=== PATIENT | male | born 1960 | race African-American/Black ===

== ENCOUNTER 2017-10-28 12:02 | Emergency (ER) | payer BC ==
[2017-10-28 12:30] LABS: #Eosinphils 0.1 thou/uL (0.0-0.7); #Lymphocytes 2.2 thou/uL (1.20-3.40); #Monocytes 0.7 thou/uL (0.11-0.59); #Neutrophils 6.5 thou/uL (1.40-6.50); %Basophils 0.2 % (0.0-1.0); %Eosinophils 0.7 % (0.0-10.0); %Lymphocytes 23.5 % (21.0-51.0); %Monocytes 7.2 % (0.0-10.0); %Neutrophils 68.5 % (42.0-75.0); Mean Corpuscular Hemoglobin 27.4 pg (27.0-31.0); Mean Corpuscular Volume 83.2 fl (80.0-94.0); Mean Platelet Volume 5.9 fL (7.4-10.4); Platelet Count 220 thou/uL (130-400); RBC Distribution Width 13.6 % (11.5-14.5); Red Blood Cell (RBC) Count 5.46 mill/uL (4.70-6.10); White Blood Cell (WBC) Count 9.5 thou/uL (4.8-10.8)
[2017-10-28 12:52] LABS: ALT (SGPT) 22 U/L (8-55); AST (SGOT) 24 U/L (5-34); Alkaline Phosphatase 113 U/L (40-150); Anion Gap 13 mmol/L (10-20); BUN (Urea Nitrogen) 23 mg/dL (8.4-25.7); Bilirubin, Total 1.1 mg/dL (0.2-1.2); CK (CPK) 293 U/L (30-200); Calc. Creatinine Clearance 0 mL/min (70-130); Calcium 10.1 mg/dL (7.8-10.44); Carbon Dioxide 28 mmol/L (22-29); Chloride 102 mmol/L (98-107); Estimated GFR-MDRD 45; Globulin 2.9 g/dL (2.4-3.5); Glucose 155 mg/dL (70-105); Potassium 3.1 mmol/L (3.5-5.1); Protein, Total 6.9 g/dL (6.0-8.3); Sodium 140 mmol/L (136-145)
[2017-10-28 12:57] LABS: CKMB 1.1 ng/mL (0-6.6); Troponin I Less than 0.010 ng/mL (< 0.028)
[2017-10-28 14:19] LABS: Bilirubin Negative (Negative); Blood, Urine Moderate (Negative); Clarity CLEAR (Clear); Glucose, Urine (Dipstick) Negative (Negative); Leukocyte Negative (Negative); Nitrite Negative (Negative); Protein, Urine (Dipstick) Trace mg/dL (Neg-Trace); Specific Gravity, Urine 1.013 (1.002-1.036)
[2017-10-28 14:22] LABS: Bacteria/HPF None Seen HPF (None Seen); Hyaline Casts/LPF 0-3 HYALINE CAST LPF (0-3 Hyaline); Pathc Cast-AUWi Flag 0.43 (0-2.49); Squamous Epithelial 0-3 HPF (0-3); WBC/HPF 0-3 HPF (0-3)
[2017-10-28 14:31] LABS: Amphetamine Not Detected (NotDetected); Barbiturates Screen Not Detected (NotDetected); Benzodiazepine Screen Not Detected (NotDetected); Cocaine Metabolite Screen Not Detected (NotDetected); Medtox Control Line Valid? VALID (VALID); Medtox Reader # READER 4; Methadone Not Detected (NotDetected); Methamphetamine Not Detected (NotDetected); Opiate Screen Not Detected (NotDetected); Oxycodone Screen Not Detected (NotDetected); Phencyclidine (PCP) Not Detected (NotDetected); THC/Cannabinoid Screen Not Detected (NotDetected); Tricyclic Screen Not Detected (NotDetected)
== END 2017-10-28 16:16 | disposition home or self-care (01) ==
LOC: ERS 12:02
DX: T67.5XXA Heat exhaustion, unspecified, initial encounter (principal); E86.0 Dehydration; I10 Essential (primary) hypertension; F17.210 Nicotine dependence, cigarettes, uncomplicated; Z79.899 Other long term (current) drug therapy
CPT/HCPCS: 36415; 80053; 80306; 81003; 81015; 82550; 82553; 83880; 84484; 85025; 96360; 96361

== ENCOUNTER 2019-02-24 20:59 | Inpatient (IN) | payer BC, SELFPAY ==
--- NOTE | 2019-02-24 21:53 | RAD ---
XR Chest 1 View Portable History: Tachycardia and hypertension Comparison: None. Findings: Lungs are clear. No pneumothorax or effusion. Cardiac silhouette and mediastinal contours a re within normal limits. No acute osseous abnormality. Impression: No acute intrathoracic abnormality.
[2019-02-24 22:02] LABS: #Basophils 0.1 thou/uL (0.0-0.2); #Eosinphils 0.1 thou/uL (0.0-0.7); #Lymphocytes 2.5 thou/uL (1.20-3.40); #Monocytes 0.7 thou/uL (0.11-0.59); #Neutrophils 5.2 thou/uL (1.40-6.50); %Basophils 0.8 % (0.0-1.0); %Eosinophils 1.2 % (0.0-10.0); %Monocytes 8.6 % (0.0-10.0); %Neutrophils 60.5 % (42.0-75.0); Hemoglobin 13.6 g/dL (14.0-18.0); Mean Corpuscular HGB CONC 33.8 g/dL (32.0-36.0); Mean Corpuscular Volume 80.1 fL (78.0-98.0); Mean Platelet Volume 7.3 fL (7.4-10.4); Platelet Count 246 thou/uL (130-400); RBC Distribution Width 14.4 % (11.5-14.5); Red Blood Cell (RBC) Count 5.01 mill/uL (4.70-6.10); White Blood Cell (WBC) Count 8.5 thou/uL (4.8-10.8)
[2019-02-24 22:17] LABS: ALT (SGPT) 21 U/L (8-55); AST (SGOT) 24 U/L (5-34); Acetaminophen Less than 6.0 mcg/mL (10.0-30.0); Albumin 4.1 g/dL (3.5-5.0); Alcohol 133 mg/dL (Less than 10); Alkaline Phosphatase 80 U/L (40-110); Anion Gap 17 mmol/L (10-20); BUN (Urea Nitrogen) 31 mg/dL (8.4-25.7); Bilirubin, Total 0.4 mg/dL (0.2-1.2); CK (CPK) 390 U/L (30-200); Calc. Creatinine Clearance 0 mL/min (70-130); Calcium 9.4 mg/dL (7.8-10.44); Carbon Dioxide 22 mmol/L (22-29); Chloride 102 mmol/L (98-107); Estimated GFR-MDRD 53; Globulin 3.1 g/dL (2.4-3.5); Glucose 100 mg/dL (70-105); Lipase 157 U/L (8-78); Protein, Total 7.2 g/dL (6.0-8.3); Salicylate Less than 8.0 mg/dL (15.0-30.0); Sodium 138 mmol/L (136-145)
[2019-02-24 22:32] LABS: Potassium 2.9 mmol/L (3.5-5.1)
[2019-02-24] MEDS ORDERED: Potassium Chloride 20 MEQ TAB ONE (22:35)
--- NOTE | 2019-02-24 22:59 | CT ---
CTA Angio Chest W WO Con History: Tachycardia Comparison: Chest radiograph same day Findings: CT angiogram chest performed after the intravenous ministration of contrast. 3-D rendering provided. Partially occlusive thrombus anterior and posterior basal segments right lower lobe pulmonary arterie s with partial extension into the lateral basal segment right lower lobe pulmonary artery. Left sided pulmonary vasculature is patent. No reflux of contrast within the suprahepatic IVC. No evidence of right heart strain. The lungs are clear. No pneumothorax. No effusion. Impression: Partially occlusive thrombus within multiple segmental arterial branches right lower lobe . No evidence of right heart strain.
[2019-02-24] MEDS ORDERED: Enoxaparin Sodium 40 MG/0.4 ML SYRINGE ONE (23:30)
[2019-02-24] MEDS ORDERED: Enoxaparin Sodium 30 MG/0.3 ML SYRINGE ONE (23:30)
[2019-02-24] MEDS ORDERED: Aspirin Chewable 81 MG TAB ONE (23:30)
[2019-02-25] MEDS ORDERED: Ondansetron ODT 4 MG TAB PO PRN (02:36)
[2019-02-25] MEDS ORDERED: Acetaminophen 325 MG TAB PO PRN (02:36)
[2019-02-25] MEDS ORDERED: Senokot S 8.6-50 MG TAB PO PRN (02:36)
[2019-02-25 03:01] VITALS: BMI 24.8
[2019-02-25] MEDS ORDERED: Lactated Ringer's 1,000 ML IV SCH (04:00)
[2019-02-25 04:44] LABS: Troponin I Less than 0.010 ng/mL (< 0.028)
[2019-02-25 04:45] LABS: #Basophils 0.1 thou/uL (0.0-0.2); #Eosinphils 0.2 thou/uL (0.0-0.7); #Lymphocytes 2.6 thou/uL (1.20-3.40); #Monocytes 0.6 thou/uL (0.11-0.59); #Neutrophils 4.6 thou/uL (1.40-6.50); %Basophils 0.6 % (0.0-1.0); %Eosinophils 1.9 % (0.0-10.0); %Lymphocytes 32.7 % (21.0-51.0); %Monocytes 7.9 % (0.0-10.0); %Neutrophils 56.9 % (42.0-75.0); Hemoglobin 12.9 g/dL (14.0-18.0); Mean Corpuscular HGB CONC 34.7 g/dL (32.0-36.0); Mean Corpuscular Volume 80.7 fL (78.0-98.0); Mean Platelet Volume 6.5 fL (7.4-10.4); Platelet Count 222 thou/uL (130-400); RBC Distribution Width 14.5 % (11.5-14.5); Red Blood Cell (RBC) Count 4.61 mill/uL (4.70-6.10); White Blood Cell (WBC) Count 8.1 thou/uL (4.8-10.8)
[2019-02-25 04:58] LABS: ALT (SGPT) 19 U/L (8-55); AST (SGOT) 22 U/L (5-34); Albumin 3.7 g/dL (3.5-5.0); Alkaline Phosphatase 91 U/L (40-110); Anion Gap 18 mmol/L (10-20); BUN (Urea Nitrogen) 27 mg/dL (8.4-25.7); Bilirubin, Total 0.2 mg/dL (0.2-1.2); Calc. Creatinine Clearance 61 mL/min (70-130); Calcium 9.3 mg/dL (7.8-10.44); Carbon Dioxide 21 mmol/L (22-29); Chloride 102 mmol/L (98-107); Estimated GFR-MDRD 69; Globulin 2.9 g/dL (2.4-3.5); Glucose 126 mg/dL (70-105); Potassium 3.6 mmol/L (3.5-5.1); Protein, Total 6.6 g/dL (6.0-8.3); Sodium 137 mmol/L (136-145)
[2019-02-25] MEDS ORDERED: Potassium Chloride 20 MEQ TAB PO SCH ×2 (05:15→08:00)
--- NOTE | 2019-02-25 05:19 | PDOC.FM ---
- Objective Vital Signs & Weight: Vital Signs (12 hours) Temp Pulse Resp BP Pulse Ox 02/25/19 01:30 98.3 F 106 H 20 131/83 97 Weight Weight 69.882 kg Result Diagrams: 02/25/19 03:04 02/25/19 03:04 Addendum - Attending - Attending Attestation Date/Time: 02/25/19 0518 I personally evaluated the patient and discussed the management with Dr. De La Rosa last night at time of admission. I agree with the History, Examination, Assessment and Plan as discussed. H&P is pending. PE is primrayr daignosis. Therapeutc lovenox started. Hypercaog workup ordered.
--- NOTE | 2019-02-25 05:26 | PDOC.FPRHP ---
- History of Present Illness Chief Complaint: Tachycardia and SOB History of Present Illness: Mr. Art is a pleasant 58 y/o male who presents to the ED for tachycardia and SOB. He states that over the past several days he could feel his "heart beating fast" and noticed that he was becoming short of breath while completing his ADLs. He denies any additional symptoms such as headaches, visual disturbances, syncopal episodes, cough, epistaxis, N/V/D, chest pain, fevers, chills or night sweats. Mr. 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 Upon presentation, he disclosed that he walked to the ED from his home, which was several miles away. ED Course: A D-Dimer performed in the ED was positive, with subsequent imaging revealing a PE w/ multiple smaller infarcts distributed throughout the lung lora. - Allergies/Adverse Reactions Allergies Allergy/AdvReac Type Severity Reaction Status Date / Time No Known Allergies Allergy Verified 02/25/19 03:07 - Home Medications Medication Instructions Recorded Confirmed Type Amlodipine [Norvasc] 10 mg PO DAILY 02/25/19 02/25/19 History Losartan/Hydrochlorothiazide 1 each PO DAILY 02/25/19 02/25/19 History [Losartan-Hctz 100-25 mg Tab] Apixaban [Eliquis] 10 mg PO BID 28 Days #49 tablet 02/26/19 Rx - History PMHx: None PSHx: None FHx: Non-contributory Social: 2-3 cigarettes per day. Denies EtOH and drug abuse. - Review of Systems General: reports: fatigue. denies: fever/chills, weight/appetite/sleep changes , night sweats Eyes: denies: eye pain, vision changes ENT: denies: nasal congestion, rhinorrhea Respiratory: reports: shortness of breath, exercise intolerance. denies: cough , congestion Cardiovascular: denies: chest pain, palpitation, edema Gastrointestinal: denies: nausea, vomiting, diarrhea, constipation, abdominal pain, GI bleeding Genitourinary: denies: dysuria, polyuria Skin: denies: rashes, lesions Musculoskeletal: denies: pain, stiffness, swelling Neurological: denies: numbness, seizure, weakness Psychological: denies: anxiety, depression - Vital signs BP: [131/83] HR: [106] RR: [20] Tmax: [98.3] Pox: [97]% on [Room] Wt: [] - Physical Exam Constitutional: NAD, awake, alert and oriented, well developed HEENT: normocephalic and atraumatic, PERRLA, EOMI, conjunctiva clear, no scleral icterus, grossly normal vision, grossly normal hearing, normal nasal mucosa, MMM, oropharynx clear Neck: supple, FROM, trachea midline, no LAD, no JVD Chest: no-tender to palpation, no lesions Heart: RRR, normal S1/S2, no murmurs/rubs/gallops, pulses present, no edema Lungs: CTAB, no respiratory distress, no rales/rhonchi, no wheezing, no retractions Abdomen: soft, non-tender, bowel sounds present, no masses/distention Musculoskeletal: normal structure, normal tone, ROM grossly normal Neurological: no focal deficit Skin: no rash/lesions, no jaundice Heme/Lymphatic: no unusual bruising or bleeding, no purpura, no petechia, no LAD Psychiatric: normal mood and affect, good judgment and insight, intact recent and remote memory FMR H&P: Results - Labs Result Diagrams: 02/26/19 11:43 02/25/19 03:04 Lab results: WBC 8.1 thou/uL (4.8-10.8) 02/25/19 03:04 Hgb 12.9 g/dL (14.0-18.0) L 02/25/19 03:04 Hct 37.2 % (42.0-52.0) L 02/25/19 03:04 MCV 80.7 fL (78.0-98.0) 02/25/19 03:04 Plt Count 222 thou/uL (130-400) 02/25/19 03:04 Neutrophils % 56.9 % (42.0-75.0) 02/25/19 03:04 ESR Westergren 5 mm/hr (Less than 20) 02/25/19 03:04 Sodium 137 mmol/L (136-145) 02/25/19 03:04 Potassium 3.6 mmol/L (3.5-5.1) 02/25/19 03:04 Chloride 102 mmol/L (98-107) 02/25/19 03:04 Carbon Dioxide 21 mmol/L (22-29) L 02/25/19 03:04 BUN 27 mg/dL (8.4-25.7) H 02/25/19 03:04 Creatinine 1.29 mg/dL (0.7-1.3) 02/25/19 03:04 Glucose 126 mg/dL (70-105) H 02/25/19 03:04 Calcium 9.3 mg/dL (7.8-10.44) 02/25/19 03:04 Total Bilirubin 0.2 mg/dL (0.2-1.2) 02/25/19 03:04 AST 22 U/L (5-34) 02/25/19 03:04 ALT 19 U/L (8-55) 02/25/19 03:04 Alkaline Phosphatase 91 U/L (40-110) 02/25/19 03:04 Creatine Kinase 390 U/L (30-200) H 02/24/19 21:47 B-Natriuretic Peptide 10.1 pg/mL (0-100) 02/24/19 21:47 Serum Total Protein 6.6 g/dL (6.0-8.3) 02/25/19 03:04 Albumin 3.7 g/dL (3.5-5.0) 02/25/19 03:04 Lipase 157 U/L (8-78) H 02/24/19 21:47 FMR H&P: A/P - Problem List (1) Pulmonary embolism and infarction Status: Acute Code(s): I26.99 - OTHER PULMONARY EMBOLISM WITHOUT ACUTE COR PULMONALE (2) Tobacco abuse Status: Chronic Code(s): Z72.0 - TOBACCO USE - Plan 1. Pulmonary Emboli w/ Infarcts -Source of emboli unknown, presence of emboli concerning in light of patient's active lifestyle -Patient denies recent trips or long periods of immobility -Heparin Protocol initiated w/ Pharmacy to dose -Hypercoagulable state 2/2 autoimmune disorder or clotting factor dysfunction -ESR: Pending -Fibrinogen: Pending -Coagulation Studies: Pending -ISABELLA: Pending -Rheumatoid Factor: Pending 2. Tobacco Abuse -Patient was counseled on the importance of tobacco cessation following a PE -Nicotine patch PRN Code Status: Full Code Diet: Heart Healthy Activity: Ad Marie DVT PPx: SCDs and Heparin Protocol Dispo: Patient admitted to Telemetry Floor w/ appropriate anticoagulation measures in place. Source of emboli must be investigated further. Await laboratory results. Consider Case Management as patient is uninsured and may be unable to obtain novel anticoagulation medication regimen. Expected LOS > 24H FMR H&P: Upper Level - Pertinent history I was present with the international logistics manager for the HPI. I agree with the above HPI. I made edits above as needed. - Pertinent findings Pt resting comfortably. No acute distress. VSS. No sign of respirtory distress. - Plan Date/Time: 02/24/19 I, Joe Smith PGY-3, have evaluated this patient and agree with findings/ plan as outlined by international logistics manager resident. Pertinent changes/additions are listed here. Pt comes in with 4 day hx of SOB and noticing tachy on his BP machine. Found to have PE. Started on Heparin at this time. Pt is uninsured so not sure if will be able to afford NOACS. Will await CM recs. May need to start warfarin bridge. Pt stable. Pt active with no recent travel. Labs pending for possible underlying clotting dz. Please refer above for detailed plan. Addendum - Attending - Attending Attestation Date/Time: 03/01/19 9574 I personally evaluated the patient and discussed the management with Dr. Smith on02/25/2019. I agree with the History, Examination, Assessment and Plan documented above with any addition or exceptions noted below.
[2019-02-25 06:05] LABS: INR-International Normal Ratio 1.1; PTT 37.2 SEC (22.9-36.1); Prothrombin Time 14.6 SEC (12.0-14.7)
[2019-02-25 06:28] LABS: Troponin I 0.017 ng/mL (< 0.028)
--- NOTE | 2019-02-25 08:50 | PDOC.FM ---
- Subjective Subjective: NAEO. Patient was able to sleep throughout the night. He had an occasional cough. Patient does not currently have SOB while laying in bed but states that if he were to walk he would get SOB. Denies any chest pain or palpitations. Patient eating breakfast this morning. - Objective MAR Reviewed: Yes Vital Signs & Weight: Vital Signs (12 hours) Temp Pulse Resp BP Pulse Ox 02/25/19 01:30 98.3 F 106 H 20 131/83 97 Weight Weight 69.882 kg I&O: 02/24/19 02/25/19 02/26/19 06:59 06:59 06:59 Intake Total 520 Output Total 150 Balance 370 Result Diagrams: 02/25/19 03:04 02/25/19 03:04 Phys Exam - Physical Examination Constitutional: NAD HEENT: moist MMs, sclera anicteric Neck: supple, full ROM Respiratory: clear to auscultation bilateral Cardiovascular: RRR, no significant murmur, no rub Gastrointestinal: soft, non-tender, no distention, positive bowel sounds Musculoskeletal: no edema, pulses present Neurological: non-focal, moves all 4 limbs Psychiatric: normal affect, A&O x 3 Skin: no rash, normal turgor, cap refill <2 seconds Dx/Plan (1) Pulmonary embolism and infarction Code(s): I26.99 - OTHER PULMONARY EMBOLISM WITHOUT ACUTE COR PULMONALE Status : Acute (2) Tobacco abuse Code(s): Z72.0 - TOBACCO USE Status: Acute - Plan Plan: Pulmonary Emboli w/ Infarcts Source of emboli unknown, presence of emboli concerning in light of patient's active lifestyle. Hypercoagulable state 2/2 autoimmune disorder or clotting factor dysfunction possible. D-Dimer elevated. CTA showing partially occlusive thrombus within multiple segmental arterial branches RLL. No evidence of heart strain. - Fibrinogen: 355; Coag studies: INR 1.1, PT 14.6, PTT 37.2. Will continue to monitor. - Heparin Protocol initiated w/ Pharmacy to dose - ESR, ISABELLA & RF: Pending; Coag mixing study and factor 5 pending - CM consulted for to help in getting patient started on DOAC such as eliquis and if not we will need to bridge with warfarin. Tobacco Abuse Patient counseled on the importance of tobacco cessation, especially following PE. Will continue to encourage cessation. - Nicotine patch PRN Code Status: Full Code Diet: Heart Healthy Activity: Ad Marie DVT PPx: SCDs and Heparin Protocol Dispo: Case Management consulted as patient is uninsured and may be unable to obtain novel anticoagulation medication regimen. Expected LOS > 48hrs. Case discussed with Dr. Low Addendum - Attending - Attending Attestation Date/Time: 02/25/19 5743 I personally evaluated the patient and discussed the management with Dr. Chawla I agree with the History, Examination, Assessment and Plan documented above with any addition or exceptions noted below - Patient denies any complaints. Denies any SOB or CP currently. Afebrile VSS. A/P: 1) PE- continue lovenox and check with insurance regarding NOAC coverage. Will check lower eextremity doppler to evaluate for DVT as source. Hypercoagulable labs ordered. Consider evaluation for occult cancer- PSA, +/- CT abdomen.
[2019-02-25] MEDS ORDERED: Heparin 5,000 UNITS/ML VIAL SC SCH (09:00)
--- NOTE | 2019-02-25 11:38 | ULT ---
ULTRASOUND DOPPLER DUPLEX VENOUS BILATERAL LOWER EXTREMITIES: DATE: 02/25/2019 HISTORY: 58-year-old male with pulmonary thromboembolism. TECHNIQUE: Grayscale, color-flow, and spectral analysis, of major veins of bilateral lower extremities. FINDINGS: There is demonstration of blood flow with normal compressibility, of the bilateral common femoral, pr ofunda femoral, greater saphenous, femoral, popliteal, and posterior tibial, veins. IMPRESSION: Negative. No deep venous thrombosis of bilateral lower extremities.
[2019-02-25 13:35] LABS: PT - Undiluted 14.4 SEC (12.0-14.7); PTT - Undiluted 34.8 SEC (22.9-36.1)
[2019-02-25 15:23] LABS: PT 1:1 37C-90 min. Incubation 13.6 SEC; PTT 1:1 37C/90 MIN Incubation 31.5 SEC
[2019-02-25 16:07] LABS: ANA Symphony (Qualitative) Negative (Negative); ANA Symphony (Quantitative) 0.2 Ratio (< 0.7 Negative); dsDNA IgG Antibody Less than 0.5 IU/mL (<10 Negative)
[2019-02-25] MEDS ORDERED: Enoxaparin Sodium 60 MG/0.6 ML SYRINGE SC SCH (21:00)
[2019-02-25] MEDS ORDERED: Enoxaparin Sodium 120 MG/0.8 ML SYRINGE SC SCH (21:00)
[2019-02-25] MEDS ORDERED: Enoxaparin Sodium 100 MG/ML SYRINGE SC SCH (21:00)
--- NOTE | 2019-02-26 05:10 | PDOC.FM ---
- Subjective Subjective: Patient doing well this morning. Denies SOB, cough, or cp. Reports that he feels well. Discussed that we are working with CM to find an affordable option for him for anticoagulation. Patient agreeable to current plan of care. - Objective Vital Signs & Weight: Vital Signs (12 hours) Temp Pulse Resp BP Pulse Ox 02/26/19 04:00 98.0 F 77 18 137/88 99 02/25/19 23:40 98.4 F 86 16 126/67 99 02/25/19 20:42 97.8 F 73 16 146/84 H 98 Weight Admit Weight 69.882 kg Weight 69.882 kg I&O: 02/24/19 02/25/19 02/26/19 06:59 06:59 06:59 Intake Total 520 720 Output Total 150 850 Balance 370 -130 Result Diagrams: 02/25/19 03:04 02/25/19 03:04 Phys Exam - Physical Examination Constitutional: NAD HEENT: moist MMs, sclera anicteric Neck: supple, full ROM Respiratory: no wheezing, clear to auscultation bilateral Cardiovascular: RRR, no significant murmur Gastrointestinal: soft, non-tender Musculoskeletal: no edema, pulses present Neurological: non-focal, moves all 4 limbs Lymphatic: no nodes Psychiatric: normal affect, A&O x 3 Skin: no rash, normal turgor Dx/Plan (1) Pulmonary embolism and infarction Code(s): I26.99 - OTHER PULMONARY EMBOLISM WITHOUT ACUTE COR PULMONALE Status : Acute (2) Tobacco abuse Code(s): Z72.0 - TOBACCO USE Status: Chronic - Plan Plan: Patient is a 58M with unremarkable past medical hx that was admitted for PE. Plan: Pulmonary Emboli w/ Infarcts Source of emboli unknown: patient smokes, but otherwise has no other risk factors (no known cancer, patient is active, no obesity, no recent surgeries, etc). Hypercoagulable state 2/2 autoimmune disorder or clotting factor dysfunction possible. - D-Dimer elevated. - CTA showing partially occlusive thrombus within multiple segmental arterial branches RLL. No evidence of heart strain. - Venogram negative - Fibrinogen: 355; Coag studies: INR 1.1, PT 14.6, PTT 37.2. Will continue to monitor. - Patient transitioned to therapeutic lovenox last night from heparin - ESR, ISABELLA, RF panel negative - Coag mixing study and factor 5 pending - CM consulted for help in getting patient started on DOAC (eliquis); will bridge with warfarin if they cannot do so. Will f/u today Tobacco Abuse - Continued counseling on cessation, patient states that he is going to try to quit when he gets home - Nicotine patch PRN Code Status: Full Code Diet: Heart Healthy Activity: Ad Marie DVT PPx: SCDs and therapeutic lovenox Dispo: Patient remains on therapeutic lovenox at this time, with possible bridge with warfarin pending patient's insurance coverage of eliquis. Expected LOS > 48hrs. Addendum - Attending - Attending Attestation Date/Time: 02/26/19 5227 I personally evaluated the patient and discussed the management with Dr. Hall I agree with the History, Examination, Assessment and Plan documented above with any addition or exceptions noted below- Patient denies any chest pain or SOB. Afebrile VSS. A/P: 1) PE- continue lovenox. Start bridging to warfarin. Will check PSA.
[2019-02-26] MEDS: Enoxaparin Sodium 80 MG/0.8 ML SYRINGE SC SCH ×2 (09:23→17:44)
[2019-02-26 12:09] LABS: Hemoglobin 12.8 g/dL (14.0-18.0); Platelet Count 210 thou/uL (130-400)
[2019-02-26 15:29] VITALS: BP 139/90; TEMP 97.8
[2019-02-26] MEDS ORDERED: Warfarin Sodium 7.5 MG TAB PO SCH (17:00)
--- NOTE | 2019-02-27 20:43 | DIS ---
DATE OF ADMISSION: 02/25/2019 DATE OF DISCHARGE: 02/26/2019 ADMITTING RESIDENT: Joe Smith MD ADMITTING ATTENDING: Chino Haji MD DISCHARGE RESIDENT: Marli Hall MD DISCHARGE ATTENDING: Hannah Low MD CONSULTATIONS: Case Management, walking program. PROCEDURES: None. IMAGIN. Chest x-ray: No acute intrathoracic abnormality. 2. Chest CTA: Partially occlusive thrombus within multiple segmental arterial branches, right lower lobe. No evidence of right heart strain. 3. Venogram: Negative. PRIMARY DIAGNOSIS: Pulmonary emboli with infarct. SECONDARY DIAGNOSIS: Tobacco abuse. DISCHARGE MEDICATIONS: 1. Amlodipine 10 mg p.o. daily. 2. Apixaban 10 mg p.o. b.i.d. x28 days, with followup with PCP for refills. 3. Losartan/hydrochlorothiazide 100/25 mg p.o. daily. DISCONTINUED MEDICATIONS: 1. Heparin. 2. K-Dur. 3. Lovenox. 4. Tylenol. 5. Zofran. 6. Senokot. HISTORY OF PRESENT ILLNESS AND HOSPITAL COURSE: The patient is a very active individual, who presented to the ED with tachycardia and shortness of breath that developed over several days before admission. D-dimer was positive, imaging above. He was found to have pulmonary emboli with infarct, with unknown source of emboli and limited risk factors due to the patient's active lifestyle, no known history of cancer, and no known history of autoimmune disease or coagulation disorder. His only known risk factor is his smoking history. He was started on heparin protocol, which was later switched to therapeutic lovenox, and laboratory evaluation for potential causes were pursued. The coagulation panel was negative, ESR was negative, ISABELLA and anti-dsDNA were negative. Mixing studies are still pending. PSA was found to be 0.50 and within normal limits. TSH was within normal limits at 1.11. Due to the unsure nature of the patient's insurance and if Eliquis would be covered, there were multiple conversations about anticoagulation for outpatient therapy. There were discussions about the possibilities of starting the patient on warfarin with frequent blood draws requiring titration. The patient opted to try Eliquis with a 30-day trial coupon with hopes of getting it covered [facility]. The patient was discharged in stable condition, denying chest pain and not requiring oxygen. He was agreeable to this plan of care and discharge. DISPOSITION: Stable. DISCHARGE INSTRUCTIONS: 1. Location: Home. 2. Diet: Heart healthy. 3. Activity: As tolerated. 4. Followup: Follow up with PCP within 7 days. Job ID: [id number] MTDD
== END 2019-02-26 18:00 | disposition home or self-care (01) | DRG 176 ==
LOC: ERS 20:59 → 2NO 02-25 02:49
PROVIDERS: ADMIT Family Medicine; ATTEND Family Medicine
DX: I26.99 Other pulmonary embolism without acute cor pulmonale (principal); F17.210 Nicotine dependence, cigarettes, uncomplicated; I10 Essential (primary) hypertension; Z98.1 Arthrodesis status
CPT/HCPCS: 36415; 36416; 71045; 71275; 80053; 80307; 80500; 81241; 82550; 83690; 83880; 84443; 84484; 85014; 85018; 85025; 85049; 85379; 85384; 85610; 85611; 85652; 85730; 85732; 86038; 86225; 93005; 93970; 96360; 96361; G0103; J1644; J1650

== ENCOUNTER 2019-12-04 09:15 | Observation (INO) | payer OTHER, SELFPAY ==
[2019-12-04 09:42] LABS: #Basophils 0.1 thou/uL (0.0-0.2); #Lymphocytes 3.2 thou/uL (1.20-3.40); #Monocytes 0.6 thou/uL (0.11-0.59); %Basophils 1.1 % (0.0-1.0); %Eosinophils 0.7 % (0.0-10.0); %Lymphocytes 45.6 % (21.0-51.0); %Monocytes 8.6 % (0.0-10.0); Hemoglobin 14.7 g/dL (14.0-18.0); Mean Corpuscular HGB CONC 32.5 g/dL (32.0-36.0); Mean Corpuscular Hemoglobin 27.2 pg (27.0-31.0); Mean Corpuscular Volume 83.7 fL (78.0-98.0); Mean Platelet Volume 11.1 fL (7.4-10.4); Platelet Count 255 thou/uL (130-400); Red Blood Cell (RBC) Count 5.41 mill/uL (4.70-6.10); White Blood Cell (WBC) Count 6.9 thou/uL (4.8-10.8)
[2019-12-04] MEDS ORDERED: Diltiazem 125 MG/25 ML ONE ×2 (09:44→09:46)
[2019-12-04] MEDS ORDERED: Sodium Chloride 0.9% 100 ML ONE (09:44)
[2019-12-04 09:49] LABS: INR-International Normal Ratio 1.1; PTT 31.1 sec (22.9-36.1); Prothrombin Time 14.3 sec (12.0-14.7)
[2019-12-04] MEDS ORDERED: Aspirin Chewable 81 MG TAB ONE (09:58)
[2019-12-04] MEDS ORDERED: Enoxaparin Sodium 80 MG/0.8 ML SYRINGE ONE (09:58)
[2019-12-04 09:59] LABS: ALT (SGPT) 39 U/L (8-55); AST (SGOT) 38 U/L (5-34); Albumin 4.1 g/dL (3.5-5.0); Alkaline Phosphatase 80 U/L (40-110); Anion Gap 16 mmol/L (10-20); BUN (Urea Nitrogen) 19 mg/dL (8.4-25.7); Bilirubin, Total 1.7 mg/dL (0.2-1.2); CK (CPK) 449 U/L (30-200); Calc. Creatinine Clearance 0 mL/min (70-130); Calcium 9.1 mg/dL (7.8-10.44); Carbon Dioxide 24 mmol/L (22-29); Chloride 102 mmol/L (98-107); Estimated GFR-MDRD 65; Globulin 3.1 g/dL (2.4-3.5); Glucose 126 mg/dL (70-105); Lipase 31 U/L (8-78); Potassium 3.3 mmol/L (3.5-5.1); Protein, Total 7.2 g/dL (6.0-8.3); Sodium 139 mmol/L (136-145)
--- NOTE | 2019-12-04 10:19 | RAD ---
EXAM: Single view of the chest HISTORY: Chest pain COMPARISON: 02/24/2019 FINDINGS: Single view of the chest shows a normal sized cardiomediastinal silhouette. There is no kale dence of consolidation, mass, or pleural effusion. The bones are unremarkable IMPRESSION: No evidence of acute cardiopulmonary disease
--- NOTE | 2019-12-04 11:18 | CT ---
CT PULMONARY ANGIOGRAM WITH IV CONTRAST AND 3D POST PROCESSING: HISTORY: A 59-year-old male with chest pain and shortness of breath. Diagnosed with PE eight months ago [address] opped blood thinners three months ago. COMPARISON: 02/24/2019 FINDINGS: There is good contrast opacification of the pulmonary arterial vasculature without filling defects to suggest pulmonary embolism. The thoracic aorta is well opacified without aneurysm or dissection. No pleural or pericardial effusions are seen. There are atelectatic changes in the lower lung lora. No lobar consolidation, pneumothoraces or lung nodules/masses are seen. There are degenerative changes in the spine. Upper abdominal tomograms demonstrate a stable 2.8 cm cyst in the left lobe of the liver. IMPRESSION: No CT evidence of pulmonary embolism. POS: MATT
[2019-12-04] MEDS ORDERED: HYDROcodone/Acetaminophen 7.5/325 mg Tablet PO PRN (12:47)
[2019-12-04] MEDS ORDERED: Acetaminophen 325 MG TAB PO PRN (12:47)
[2019-12-04] MEDS ORDERED: Ondansetron PF 4 MG/2 ML Vial IVP PRN (12:47)
[2019-12-04] MEDS ORDERED: Bisacodyl 5 MG TAB PO PRN (12:47)
[2019-12-04] MEDS ORDERED: HYDROcodone/Acetaminophen 5/325 mg Tablet PO PRN (12:47)
[2019-12-04] MEDS ORDERED: diphenhydrAMINE 25 MG CAP PO PRN (12:50)
[2019-12-04] MEDS ORDERED: Docusate 100 MG CAP PO PRN (12:50)
[2019-12-04] MEDS ORDERED: Melatonin 3 MG TAB PO PRN (12:50)
[2019-12-04] MEDS ORDERED: Benzonatate 100 MG CAP PO PRN (12:50)
[2019-12-04] MEDS ORDERED: Labetalol HCl 100 MG/20 ML VIAL SLOW IVP PRN (12:50)
[2019-12-04] MEDS ORDERED: Iopamidol-370 76% 500 ML 1 ML ONE (13:33)
[2019-12-04 14:50] VITALS: BMI 26.6
[2019-12-04] MEDS ORDERED: Diltiazem 125 MG in Sodium Chloride 0.9% 100 ML IVPB SCH (16:00)
--- NOTE | 2019-12-04 16:39 | PDOC.HHP ---
Hospitalist HPI - History of Present Illness Shortness of breath and chest pain History of Present Illness: 59-year-old gentleman with past medical history of pulmonary embolism roughly one year ago and hypertension presents with chest pain and shortness of breath. In the emergency department patient was found have atrial fibrillation with rapid ventricular response and was placed on diltiazem drip which controlled his rate. The patient had a CT angiography of the chest, please see full report for details, study was negative for pulmonary embolism or other acute process. Patient tells me that he was on Eliquis and then later changed to Pradaxa which was stopped roughly 4 months ago. He has been off all anticoagulation since then. Patient was at work this morning when he started feeling abnormal with his heart fluttering, chest discomfort, and some shortness of breath with exertion. Patient was concerned and presented to the emergency department for further evaluation. I find the patient in the emergency department he is sitting upright in the bed in no apparent distress. Patient's heart rate is stable in the 90s on diltiazem drip. Patient is breathing comfortably on room air. Patient currently denies chest discomfort. Patient does not have any shortness of breath at rest, though does endorse shortness of breath with exertion. Patient admitted to the medical unit with telemetry for close management. Cardiology consultation requested for further recommendations. Hospitalist ROS - Review of Systems All other systems reviewed; all pertinent +/- noted in HPI/Subj Hospitalist History - Past Medical History Source: patient Cardiac: reports: HTN Pulmonary: reports: pulmonary embolism - Family History Family History: reports: hypertension - Social History Tobacco Type: cigarettes Alcohol: reports: None Drugs: reports: none Living Situation: With Family Domestic Violence: Negative Activity level: independent ambulation - Exam General Appearance: NAD, awake alert Eye: PERRL ENT: normocephalic atraumatic, moist mucosa Neck: supple, symmetric, no lymphadenopathy Heart: no murmur, no gallops, no rubs, irregular Respiratory: CTAB, no wheezes, no rales, no ronchi, normal chest expansion Gastrointestinal: soft, non-tender, non-distended, no guarding, no rigidity Extremities: no clubbing, no edema Skin: no lesions, no rashes Neurological: cranial nerve grossly intact, no focal deficits Musculoskeletal: normal tone, normal strength Psychiatric: normal affect, normal behavior, A&O x 3 Hospitalist Results - Labs Result Diagrams: 12/04/19 09:33 12/04/19 09:33 Lab results: WBC 6.9 thou/uL (4.8-10.8) 12/04/19 09:33 Hgb 14.7 g/dL (14.0-18.0) 12/04/19 09:33 Hct 45.3 % (42.0-52.0) 12/04/19 09:33 MCV 83.7 fL (78.0-98.0) 12/04/19 09:33 Plt Count 255 thou/uL (130-400) 12/04/19 09:33 Neutrophils % 44.0 % (42.0-75.0) 12/04/19 09:33 Sodium 139 mmol/L (136-145) 12/04/19 09:33 Potassium 3.3 mmol/L (3.5-5.1) L 12/04/19 09:33 Chloride 102 mmol/L (98-107) 12/04/19 09:33 Carbon Dioxide 24 mmol/L (22-29) 12/04/19 09:33 BUN 19 mg/dL (8.4-25.7) 12/04/19 09:33 Creatinine 1.36 mg/dL (0.7-1.3) H 12/04/19 09:33 Glucose 126 mg/dL (70-105) H 12/04/19 09:33 Calcium 9.1 mg/dL (7.8-10.44) 12/04/19 09:33 Total Bilirubin 1.7 mg/dL (0.2-1.2) H 12/04/19 09:33 AST 38 U/L (5-34) H 12/04/19 09:33 ALT 39 U/L (8-55) 12/04/19 09:33 Alkaline Phosphatase 80 U/L (40-110) 12/04/19 09:33 Creatine Kinase 449 U/L (30-200) H 12/04/19 09:33 Troponin I 0.020 ng/mL (< 0.028) 12/04/19 09:33 B-Natriuretic Peptide 47.8 pg/mL (0-100) 12/04/19 09:33 Serum Total Protein 7.2 g/dL (6.0-8.3) 12/04/19 09:33 Albumin 4.1 g/dL (3.5-5.0) 12/04/19 09:33 Lipase 31 U/L (8-78) 12/04/19 09:33 - Radiology Interpretation CT scan - chest Status: image reviewed by me Hospitalist H&P A/P - Problem (1) Atrial fibrillation Code(s): I48.91 - UNSPECIFIED ATRIAL FIBRILLATION Status: Acute (2) Hx pulmonary embolism Code(s): Z86.711 - PERSONAL HISTORY OF PULMONARY EMBOLISM Status: Acute (3) HTN (hypertension) Code(s): I10 - ESSENTIAL (PRIMARY) HYPERTENSION Status: Acute - Plan Plan: Plan: admit to the medical unit with telemetry cardiology consultation, recommendations appreciated diltiazem drip to control heart rate Lovenox 1 mg per kilogram b.i.d., full dose negative cardiac enzymes CT angiography the chest for pulmonary embolism, see full report for details blood pressure control continue other home medications is able blood sugar control G.I. prophylaxis DVT prophylaxis
[2019-12-04 16:45] LABS: Troponin I 0.026 ng/mL (< 0.028)
[2019-12-04] MEDS ORDERED: Aspirin 81 mg Enteric Coated Tablet PO SCH (18:00)
--- NOTE | 2019-12-04 21:10 | CON ---
DATE OF CONSULTATION: HISTORY OF PRESENT ILLNESS: Markus Art is a 59-year-old black male, admitted with atrial fibrillation. He does have history of pulmonary emboli in February 2019, when he presented with shortness of breath. He was started on heparin protocol, switched to Lovenox and then placed on Eliquis 10 b.i.d. Coagulation panel was negative. ESR was negative. ISABELLA and anti-dsDNA were negative. PSA and TSH were normal. He was eventually switched to Pradaxa since he gets his medicines from the [place]. He states that he took that for approximately four months of total anticoagulation and he was told he could stop taking it. He presented today to the emergency room complaining of shortness of breath and palpitations. Over possibly last week, he has noted some exertional shortness of breath and maybe some chest tightness. Today that seemed to be worse and he came to the emergency room. He was found to be in atrial fibrillation with fast ventricular response with admission EKG showing a rate of 181 per minute. He has left axis deviation and possible old inferior RI on his EKG. He was given 20 mg of diltiazem intravenously and then started on a 5 mg/hour drip. He also was given 1 L of normal saline and Lovenox 1 mg/kg as well as aspirin 324 mg. He underwent a CT angiogram, which revealed no evidence of pulmonary embolism. At present time, he states that his symptoms have resolved. Cardiac enzymes have been unremarkable. He converted to sinus rhythm. I am uncertain exactly when that occurred, but he came to the emergency room at 9:16 and the first rhythm strip that shows sinus rhythm was at 10:23. PAST MEDICAL HISTORY: Hypertension and history of pulmonary embolism. He denies any history of diabetes or hypercholesterolemia. MEDICATIONS: Losartan/hydrochlorothiazide 100/25 daily. It sounds as if his diastolics were frequently above 90 at home and at times over 100. SOCIAL HISTORY: He smokes 3 to 5 cigarettes per day. He does not drink alcohol. FAMILY HISTORY: Negative for coronary artery disease. REVIEW OF SYSTEMS: Ten-point review of systems unremarkable. PHYSICAL EXAMINATION: VITAL SIGNS: Blood pressure 154/96 and pulse of 99. HEENT: PERRL. NECK: Supple. CHEST: Clear. CARDIAC: S1 and S2 normal without any S3, S4, or murmurs. Carotid upstrokes normal without bruits. ABDOMEN: Normal bowel sounds without tenderness or organomegaly. EXTREMITIES: Revealed no clubbing, cyanosis, or edema. NEUROLOGIC: Grossly intact. SKIN: Warm and dry. LABORATORY DATA: There is no post-conversion EKG and this will be ordered. CBC is unremarkable. INR 1.1. Sodium 139, potassium 3.3, chloride 102, carbon dioxide 24, BUN 19, creatinine 1.36, and glucose 126. CK 449 and troponin I is normal x2. IMPRESSION: 1. New onset atrial fibrillation with rate as high as 180 per minute associated with shortness of breath and some chest tightness. He was converted with intravenous Cardizem after about an hour and 15 minutes. 2. Hypertension, which probably is not well controlled. 3. History of pulmonary embolism in February 2019, with negative clotting studies. 4. Smoker. 5. Chronic kidney disease. PLAN: Post chemical cardioversion EKG will be obtained. TSH and T4 will be ordered. Echocardiogram will be performed. With chest tightness associated with this, he will undergo adenosine Cardiolite testing. Fasting lipid profile will also be obtained. With his elevated creatinine, which has been as high as 1.88 in October 2017, I will discontinue the losartan/hydrochlorothiazide. Instead, he will be placed on [id number] in the hopes of better blood pressure control as well as possible suppression of his atrial fibrillation. His CHADS-VASc score is 1 and so he will be placed on one aspirin per day. His intravenous Cardizem will be discontinued once he was started on metoprolol. Job ID: [id number] MTDD
[2019-12-04] MEDS: Enoxaparin Sodium 80 MG/0.8 ML SYRINGE SC SCH (21:48)
[2019-12-04] MEDS: Metoprolol Tartrate 50 MG TAB PO SCH (21:48)
[2019-12-04] MEDS: Famotidine 20 MG TAB PO SCH (21:51)
[2019-12-05 05:30] LABS: Anion Gap 10 mmol/L (10-20); BUN (Urea Nitrogen) 15 mg/dL (8.4-25.7); Calc. Creatinine Clearance 90 mL/min (70-130); Calcium 8.3 mg/dL (7.8-10.44); Carbon Dioxide 30 mmol/L (22-29); Cardiac Risk 2.8 (Less than 4.5); Chloride 102 mmol/L (98-107); Cholesterol 141 mg/dl (< 200 Desired); Estimated GFR-MDRD Greater than 90; Glucose 82 mg/dL (70-105); HDL Cholesterol 50 mg/dL (>60 Neg Risk); LDL Cholesterol, Calculated 74 mg/dL; Potassium 3.2 mmol/L (3.5-5.1); Sodium 139 mmol/L (136-145); Triglycerides 87 mg/dL (Less than 150)
[2019-12-05 05:35] LABS: T4 5.2 ug/dL (4.87-11.72); Thyroid Stimulating Hormone 2.7228 uIU/mL (0.35-4.94)
[2019-12-05] MEDS ORDERED: Potassium Chloride 20 MEQ TAB PO SCH (08:00)
[2019-12-05 08:21] VITALS: TEMP 98.1
[2019-12-05] MEDS: Enoxaparin Sodium 80 MG/0.8 ML SYRINGE SC SCH (08:22)
[2019-12-05] MEDS ORDERED: Aspirin 325 mg Enteric Coated Tablet PO SCH (09:00)
[2019-12-05] MEDS ORDERED: ADENOSINE 60 MG/20 ML VIAL ONE (13:16)
--- NOTE | 2019-12-05 13:29 | NM ---
EXAM: CARDIAC SPECT HISTORY: Chest pain, atrial fibrillation, hypertension, pulmonary embolism, smoker TECHNIQUE: A myocardial perfusion scan was performed using the single isotope 1 day protocol with carola hnetium 99m sestamibi. [10 mCi] was injected intravenously for the rest exam followed by 30 mCi for the stress study. Pharmacologic stress with adenosine was monitored and interpreted by TORY Nunez. FINDINGS: Homogeneous tracer distribution is seen in the myocardial segments on stress and rest image s without fixed or reversible defects. Gated SPECT LVEF: 37% Wall motion exam: Global hypokinesis IMPRESSION: No evidence of reversible ischemia
[2019-12-05] MEDS: Metoprolol Tartrate 50 MG TAB PO SCH (14:19)
[2019-12-05] MEDS: Famotidine 20 MG TAB PO SCH (14:19)
[2019-12-05 20:01] VITALS: BP 176/98
--- NOTE | 2019-12-06 02:17 | DIS ---
DATE OF ADMISSION: 12/04/2019 DATE OF DISCHARGE: 12/05/2019 REASON FOR HOSPITALIZATION: Atrial fibrillation with rapid ventricular response. SIGNIFICANT FINDINGS: The patient was found to be in atrial fibrillation with rapid ventricular response. He was admitted to the medical unit with telemetry for maximum medical therapy. The patient was seen and evaluated by Cardiology, please see full consultation notes and progress notes for details. Cardiology noting that the patient spontaneously converted to sinus rhythm after the addition of medications. The patient was recommended for nuclear medicine stress test, please see full report for details, there was no reversible ischemia identified. The patient with an echocardiogram demonstrating a preserved ejection fraction of 50% to 55% and diastolic dysfunction. The patient was recommended safe for discharge by Cardiology with close followup in the outpatient setting. CONDITION ON DISCHARGE: Stable. DISCHARGE MEDICATIONS: 1. Aspirin 325 mg one tablet p.o. daily. 2. Metoprolol 50 mg one tablet p.o. b.i.d. SPECIFIC INSTRUCTIONS FOR THE PATIENT/FAMILY: 1. The patient recommended to take all medications as directed. 2. The patient recommended to follow up with primary care physician in the next 5 to 7 days. 3. The patient recommended to follow up with Cardiology in the next 2 to 4 weeks. 4. The patient recommended to comply with all the previously mentioned steps or return to acute care hospital immediately for re-evaluation. 5. The patient recommended to return to acute care hospital immediately if signs or symptoms return, worsen, or any other new symptoms occur. TIME SPENT: Greater than 36 minutes spent coordinating care and discharge process for this patient. Job ID: [id number]
== END 2019-12-05 16:35 | disposition home or self-care (01) ==
LOC: ERS 09:15 → ERHOLD 13:15 → 2NO 17:17
PROVIDERS: ADMIT Internal Medicine; ATTEND Internal Medicine
DX: I48.91 Unspecified atrial fibrillation (principal); F17.210 Nicotine dependence, cigarettes, uncomplicated; I12.9 Hypertensive chronic kidney disease with stage 1 through stage 4 chronic kidney disease, or unspecified chronic kidney disease; N18.9 Chronic kidney disease, unspecified; Z86.711 Personal history of pulmonary embolism; Z79.899 Other long term (current) drug therapy
CPT/HCPCS: 36415; 71045; 71275; 78452; 80048; 80053; 80061; 82550; 83690; 83880; 84436; 84443; 84484; 85025; 85610; 85730; 93005; 93010; 93017; 93306; 94760; 96365; 96366; 96372; 96376; A9500; G0378; J1650; J3490; Q9967

== ENCOUNTER 2022-12-18 09:39 | Emergency (ER) | payer OTHER ==
[2022-12-18 11:09] LABS: #Monocytes 0.5 thou/uL (0.11-0.59); #Neutrophils 3.3 thou/uL (1.40-6.50); %Basophils 0.4 % (0.0-1.0); %Eosinophils 0.4 % (0.0-10.0); %Lymphocytes 27.2 % (21.0-51.0); %Monocytes 8.9 % (0.0-10.0); %Neutrophils 63.1 % (42.0-75.0); Hemoglobin 14.9 g/dL (14.0-18.0); Mean Corpuscular HGB CONC 34.8 g/dL (32.0-36.0); Mean Corpuscular Hemoglobin 27.8 pg (27.0-31.0); Mean Corpuscular Volume 79.9 fl (78.0-98.0); Platelet Count 224 10x3/uL (130-400); RBC Distribution Width 15.4 % (11.5-14.5); Red Blood Cell (RBC) Count 5.36 mill/uL (4.70-6.10); White Blood Cell (WBC) Count 5.2 10x3/uL (4.8-10.8)
[2022-12-18 11:35] LABS: ALT (SGPT) 29 U/L (8-55); AST (SGOT) 34 U/L (5-34); Alkaline Phosphatase 91 U/L (40-110); Anion Gap 15 mmol/L (10-20); BUN (Urea Nitrogen) 13 mg/dL (8.4-25.7); Bilirubin, Total 0.5 mg/dL (0.2-1.2); Calc. Creatinine Clearance 0 mL/min (70-130); Calcium 9.6 mg/dL (7.8-10.44); Carbon Dioxide 26 mmol/L (23-31); Chloride 105 mmol/L (98-107); Estimated GFR 99; Globulin 3.2 g/dL (2.4-3.5); Glucose 102 mg/dL (80-115); Magnesium 1.9 mg/dL (1.6-2.6); Potassium 3.4 mmol/L (3.5-5.1); Protein, Total 7.2 g/dL (5.8-8.1); Sodium 143 mmol/L (136-145)
== END 2022-12-18 13:10 | disposition home or self-care (01) ==
LOC: ERS 09:39
DX: R00.2 Palpitations (principal); I10 Essential (primary) hypertension; I48.91 Unspecified atrial fibrillation; F17.210 Nicotine dependence, cigarettes, uncomplicated; Z79.899 Other long term (current) drug therapy; Z79.82 Long term (current) use of aspirin
CPT/HCPCS: 71045; 80053; 83735; 84484; 85025; 93005

== ENCOUNTER 2024-12-20 21:18 | Emergency (ER) | payer OTHER ==
[2024-12-20 21:38] LABS: #Basophils Less than 0.03 10x3/uL (0.0-0.2); #Eosinophils 0.09 10x3/uL (0.0-0.7); #Monocytes 0.91 10x3/uL (0.11-0.59); #Neutrophils 4.07 10x3/uL (1.40-6.50); %Basophils 0.3 % (0.0-1.0); %Eosinophils 1.2 % (0.0-10.0); %Lymphocytes 32.9 % (21.0-51.0); %Monocytes 12.0 % (0.0-10.0); %Neutrophils 53.3 % (42.0-75.0); Hematocrit 41.8 % (42.0-52.0); Hemoglobin 14.6 g/dL (14.0-18.0); Mean Corpuscular Hemoglobin 27.1 pg (27.0-31.0); Mean Corpuscular Volume 77.6 fL (78.0-98.0); Platelet Count 211 10x3/uL (130-400); Red Blood Cell (RBC) Count 5.39 mill/uL (4.70-6.10); White Blood Cell (WBC) Count 7.61 10x3/uL (4.8-10.8)
[2024-12-20 21:50] LABS: ALT (SGPT) 23 U/L (Less than 45); AST (SGOT) 31 U/L (11-34); Albumin 4.3 g/dL (3.1-4.5); Alkaline Phosphatase 84 U/L (40-110); Anion Gap 16 mmol/L (10-20); BUN (Urea Nitrogen) 11 mg/dL (8.4-25.7); Bilirubin, Total 0.7 mg/dL (0.3-1.2); Calc. Creatinine Clearance 0 mL/min (70-130); Calcium 9.7 mg/dL (7.8-10.44); Carbon Dioxide 27 mmol/L (23-31); Chloride 101 mmol/L (98-107); Globulin 3.3 g/dL (2.4-3.5); Glucose 106 mg/dL (80-115); Potassium 3.6 mmol/L (3.5-5.1); Sodium 140 mmol/L (136-145)
[2024-12-20 21:55] LABS: Troponin I Less than 0.010 ng/mL (< 0.028)
[2024-12-20] MEDS ORDERED: hydrALAZINE 20 MG/ML VIAL ONE (22:25)
== END 2024-12-21 01:39 ==
LOC: ERS 21:18 → EEVIPCON 21:18 → ERS 12-21 01:39
DX: I10 Essential (primary) hypertension (principal); I48.91 Unspecified atrial fibrillation; F17.210 Nicotine dependence, cigarettes, uncomplicated
CPT/HCPCS: 71045; 80053; 83880; 84484; 85025; 93005; 96374; 96375; J0360